=== PATIENT | male | born 1985 | race Caucasian/White ===

== ENCOUNTER 2020-11-03 15:20 | Emergency (ER) | payer OTHER ==
[~2020-11-03] VITALS: Ht 167.6 cm; Wt 83.9 kg
[~2020-11-03 15:20] MED LIST: FLEXERIL PO; HYDROCODON-ACE1 EAC7 PO; ROBAXIN 750 MG750 M1 PO
[2020-11-03] MEDS ORDERED: MEDROLDOSEPACK PO (16:52)
[2020-11-03] MEDS ORDERED: NORCO5 PO (16:52)
[2020-11-03] MEDS ORDERED: ZANAFLEX4 MG PO (16:52)
[2020-11-03] MEDS ORDERED: NAPROSYN500 MG PO (16:52)
[2020-11-03 17:06] VITALS: BP 152/91
== END 2020-11-03 17:07 | disposition home or self-care (01) ==
LOC: M.ERS 15:20
DX: M51.86 Other intervertebral disc disorders, lumbar region (principal); I10 Essential (primary) hypertension; F17.210 Nicotine dependence, cigarettes, uncomplicated